=== PATIENT | female | born 1960 | race Caucasian/White ===

== ENCOUNTER 2020-10-22 19:30 | Emergency (ER) | payer MEDICAID ==
[~2020-10-22] VITALS: Ht 165.1 cm; Wt 99.8 kg
[2020-10-22 19:40] VITALS: BP_SYST 200
--- NOTE | 2020-10-22 19:40 | NUR ---
Patient triaged and placed in waiting room. VSS and patient appears in no acute distress at this time. Accompanied by self, awaiting available bed, and MD notified of need for MSE.
--- NOTE | 2020-10-22 19:42 | NUR ---
[facility] [address] examining patient.
[2020-10-22] MEDS ORDERED: IOHEXOL 350 mgI/mL, 150 ML INFUS..BTL IV ONE (20:57)
--- NOTE | 2020-10-22 21:00 | NUR ---
Pt read and sign pt consent for CTA chest w/ contrast.
[2020-10-22 21:09] LABS: BASOPHILS # (AUTO) 0.1 K/uL (0.0-0.2); BASOPHILS % (AUTO) 0.7 % (0.0-2.0); EOSINOPHILS # (AUTO) 0.2 K/uL (0.0-0.4); HEMATOCRIT 38.8 % (36-48); HEMOGLOBIN 12.1 g/dL (12.0-16.0); LYMPHOCYTES # (AUTO) 1.9 K/uL (1.0-5.5); LYMPHOCYTES % (AUTO) 16.8 % (20.5-51.5); MEAN CORPUSCULAR HEMOGLOBIN 23 pg (27-31); MEAN CORPUSCULAR HGB CONC 31 % (32-36); MEAN CORPUSCULAR VOLUME 74 fL (79.0-98.0); MONOCYTES # (AUTO) 0.8 K/uL (0.0-1.0); MONOCYTES % (AUTO) 6.8 % (1.7-9.3); NEUTROPHILS # (AUTO) 8.3 K/uL (1.8-7.7); NEUTROPHILS % (AUTO) 73.7 % (40.0-70.0); PLATELET COUNT (AUTO) 413 K/uL (130-430); RED BLOOD CELL COUNT(AUTO) 5.24 MIL/uL (4.2-6.2); RED CELL DISTRIBUTION WIDTH 16.1 % (9.0-15.0); WHITE BLOOD COUNT (AUTO) 11.3 K/uL (4.8-10.8)
[2020-10-22 21:24] LABS: CALCIUM 9.4 mg/dL (8.4-11.0); CREATININE 1.15 mg/dL (0.55-1.30); POTASSIUM 4.1 mmol/L (3.5-5.1)
[2020-10-22 21:35] LABS: PROTHROMBIN TIME 9.9 SECS (9.5-12.5)
[2020-10-22 21:51] LABS: TOTAL BILIRUBIN 0.4 mg/dL (0.0-1.0)
[2020-10-22 21:52] LABS: ALBUMIN 3.1 g/dL (3.4-4.8)
--- NOTE | 2020-10-22 22:30 | NUR ---
Pt taken to CT awake via wheelchair.
--- NOTE | 2020-10-23 00:30 | NUR ---
Dr Garcia made aware BP elevated,Per Dr Garcia ok to dc pt home.
[2020-10-23 00:35] VITALS: BP_SYST 155
--- NOTE | 2020-10-23 00:35 | NUR ---
Patient given written and verbal discharge instructions and verbalizes understanding. ER MD discussed with patient the results and treatment provided. Patient in stable condition. ID arm band removed. IV catheter removed intact and dressing applied, no active bleeding. Rx of Ibuprofen,[place],Albuterol given. Patient educated on pain management and to follow up with PMD. Pain Scale 3/10. Opportunity for questions provided and answered. Medication side effect fact sheet provided.
== END 2020-10-23 00:35 | disposition home or self-care (01) ==
LOC: SED 19:30
DX: N63.0 Unspecified lump in unspecified breast (principal); J90 Pleural effusion, not elsewhere classified; R06.02 Shortness of breath; I10 Essential (primary) hypertension; R51.9 Headache, unspecified; Z88.0 Allergy status to penicillin; Z20.828 Contact with and (suspected) exposure to other viral communicable diseases
CPT/HCPCS: 36415; 71275; 76376; 80053; 84484; 85025; 85610; 85730; 87426; 93005; 99285; Q9967

== ENCOUNTER 2020-12-29 16:58 | Emergency (ER) | payer MEDICAID, OTHER ==
[~2020-12-29] VITALS: Ht 167.6 cm; Wt 136.1 kg
[2020-12-29] MEDS ORDERED: ETOMIDATE 20 MG/ 10 ML VIAL (AMIDATE) IVP ONE (16:59)
[2020-12-29] MEDS ORDERED: SUCCINYLCHOLINE CHLORIDE 20 MG/ML(QUELICIN) IVP ONE (16:59)
[2020-12-29 17:00] VITALS: BP_SYST 130
== END 2020-12-29 18:57 ==
LOC: SED 16:58
DX: I46.9 Cardiac arrest, cause unspecified (principal); C76.8 Malignant neoplasm of other specified ill-defined sites; I10 Essential (primary) hypertension; R06.02 Shortness of breath; Z88.0 Allergy status to penicillin
CPT/HCPCS: 31500; 36680; 92950; 99285; J0330; J3490